=== PATIENT | male | born 1955 | race Caucasian/White ===

== ENCOUNTER 2021-08-08 13:56 | Inpatient (IN) | payer OTHER ==
[~2021-08-08] VITALS: Ht 175.3 cm; Wt 97.5 kg
--- NOTE | 2021-08-08 14:06 | NUR ---
[id number] FROM [facility] C/O CHEST PAIN PRESSURE LIKE 1HR RADIO TELEVISION TECHNICAL DIRECTOR P/S 7/10, GIVEN 4SPRAYS OF NITRO AND 324 ASPIRIN, CHEST PAIN 0/10 UPON ARRIVAL. PT ATTACHED TO MONITOR, NO RESP DISTRESS NOTED. PT DENIES CHEST PAIN UPON ARRIVAL AFTER BEING GIVEN NITRO AND ASPIRIN. WARM BLANKET PROVIDED FOR COMFORT. AWAITING MD SANDERS.
[2021-08-08 14:42] LABS: BASOPHILS % (AUTO) 0.2 % (0.0-2.0); EOSINOPHILS % (AUTO) 4.2 % (0.0-6.0); HEMATOCRIT 31 % (39-51); HEMOGLOBIN 10.4 g/dL (13.5-17.5); LYMPHOCYTES # (AUTO) 0.8 K/uL (0.8-4.8); LYMPHOCYTES % (AUTO) 9.8 % (20.0-44.0); MEAN CORPUSCULAR HGB CONC 33 g/dl (31.0-36.0); MEAN CORPUSCULAR VOLUME 89 fL (80-96); MONOCYTES # (AUTO) 0.9 K/uL (0.1-1.30); NEUTROPHILS # (AUTO) 6.2 K/uL (1.8-8.9); NEUTROPHILS % (AUTO) 74.8 % (43.0-81.0); PLATELET COUNT (AUTO) 235 K/uL (150-450); WHITE BLOOD COUNT (AUTO) 8.3 K/uL (4.3-11.0)
[2021-08-08] MEDS ORDERED: AMIN887L PO (14:42)
[2021-08-08] MEDS ORDERED: OLAN20TA3 PO (14:42)
[2021-08-08] MEDS ORDERED: DIVA-78 PO (14:42)
[2021-08-08] MEDS ORDERED: APIX5TAB PO (14:42)
[2021-08-08] MEDS ORDERED: DOCU-141 PO (14:42)
[2021-08-08] MEDS ORDERED: DILT-32 PO (14:42)
[2021-08-08] MEDS ORDERED: TAMS-12 PO (14:42)
[2021-08-08] MEDS ORDERED: FURO-144 PO (14:42)
[2021-08-08] MEDS ORDERED: MULT-447 PO (14:42)
[2021-08-08] MEDS ORDERED: DIGO125T PO (14:42)
[2021-08-08] MEDS ORDERED: MAGN400T26 PO (14:42)
[2021-08-08] MEDS ORDERED: CLON0.5T4 PO (14:42)
[2021-08-08] MEDS ORDERED: ASCO500C17 PO (14:42)
[2021-08-08] MEDS ORDERED: INSU100V7 SQ (14:42)
[2021-08-08] MEDS ORDERED: SPIR25TA6 PO (14:42)
[2021-08-08] MEDS ORDERED: INSU100V42 (14:42)
[2021-08-08] MEDS ORDERED: METO25TA6 PO (14:42)
[2021-08-08] MEDS ORDERED: GABA-532 PO (14:42)
[2021-08-08] MEDS ORDERED: ATOR20TA PO (14:42)
[2021-08-08] MEDS ORDERED: METF-440 PO (14:42)
--- NOTE | 2021-08-08 14:44 | NUR ---
COVID ANTIGEN SWAB DONE AND SENT TO THE LAB
[2021-08-08 15:17] LABS: CALCIUM, SERUM 9.1 mg/dL (8.5-10.1); CARBON DIOXIDE 39 mmol/L (21-32); CHLORIDE 93 mmol/L (98-107); CREATININE 0.6 mg/dL (0.6-1.3); GLUCOSE 137 mg/dL (74-106); POTASSIUM 3.8 mmol/L (3.5-5.1); SODIUM SERUM 133 mmol/L (136-145); UREA NITROGEN, BLOOD 7 mg/dL (7-18)
[2021-08-08 15:30] LABS: ALANINE AMINOTRANSFERASE 13 U/L (12-78); ALBUMIN 2.9 g/dL (3.4-5.0); ALKALINE PHOSPHATASE 64 U/L (46-116); ASPARTATE AMINOTRANSFERASE 7 U/L (15-37); BILIRUBIN,DIRECT 0.1 mg/dL (0.0-0.2); BILIRUBIN,TOTAL 0.3 mg/dL (0.2-1.0); TOTAL PROTEIN, SERUM 6.9 g/dL (6.4-8.2)
[2021-08-08] MEDS ORDERED: ONDANSETRON HCL/PF 4 MG/2 ML VIAL IVP PRN (15:30)
[2021-08-08] MEDS ORDERED: HYDROCODONE/APAP 5/325MG TABLET PO PRN (15:30)
[2021-08-08] MEDS ORDERED: MORPHINE SULFATE INJ 2 MG/ML DISP.SYRIN IV PRN (15:30)
[2021-08-08] MEDS ORDERED: NITROGLYCERIN 0.4 MG/TAB BOTTLE SL PRN (15:30)
[2021-08-08] MEDS ORDERED: MAG HYDROX/AL HYDROX/SIMETH 30 ML UDC PO PRN (15:30)
[2021-08-08] MEDS ORDERED: METOPROLOL TARTRATE 25 MG TABLET PO SCH (17:00)
[2021-08-08] MEDS ORDERED: DEXTROSE 50%-WATER 50 ML DISP.SYRIN IV PRN (17:30)
[2021-08-08] MEDS ORDERED: APIXABAN 5 MG TABLET ONE (17:40)
[2021-08-08] MEDS ORDERED: METOPROLOL TARTRATE 25 MG TABLET ONE (17:40)
[2021-08-08] MEDS ORDERED: METFORMIN 500 MG TABLET ONE (17:40)
[2021-08-08] MEDS ORDERED: clonazePAM 0.5 MG TABLET ONE (17:40)
[2021-08-08] MEDS: clonazePAM 0.5 MG TABLET PO SCH (17:51)
[2021-08-08] MEDS: METFORMIN 500 MG TABLET PO SCH (17:51)
[2021-08-08] MEDS: APIXABAN 5 MG TABLET PO SCH (17:51)
[2021-08-08] MEDS: BLOOD SUGAR DIAGNOSTIC 1 EACH STRIP IN SCH ×2 (17:51→21:29)
--- NOTE | 2021-08-08 17:53 | NUR ---
PT PROVIDED WITH MEAL TRAY
[2021-08-08] MEDS ORDERED: ACETAMINOPHEN 325 MG TABLET PO PRN (18:00)
--- NOTE | 2021-08-08 19:43 | NUR ---
ROOM 325 TELE
[2021-08-08 20:00] VITALS: BP 122/64
--- NOTE | 2021-08-08 20:21 | NUR ---
REPORT GIVEN TO JONAH AMATO FOR ROBBIN
--- NOTE | 2021-08-08 20:50 | NUR ---
PROFESSOR OF LITERATURECLOTH LAMINATING SUPERVISOR NOTE PT TRANSPORTED VIA GURNEY TO UNIT AT THIS TIME. PT FROM [facility] ADMITTED TO TELE FROM ER UNDER DR SAMANIEGO FOR ADMITTING DX CHEST PAIN. A/O X4 AND ABLE TO MAKE NEEDS KNOWN. AMBULATORY WITH STEADY GAIT. PT ON 2 LPM VIA NC, SATURATING 100%. NO SOB OR S/S OF RESPIRATORY DISTRESS. BREATHING EVEN AND UNLABORED. ON EXTERNAL LINER ROLL CHANGER READING AFIB 86 BPM. NO COMPLAINTS OF S/S OF PAIN NOTED. PT HAS L HAND SKIN TEAR, BILATERAL CHEEK WOUNDS, L EAR WOUND, AND R HAND BRUISE. WOUND CONSULT ORDERED. BLE 1+ NONPITTING EDEMA NOTED. IV ACCESS L WRIST 18 GAUGE SL, INTACT AND PATENT. ORIENTED TO UNIT, STAFF, AND ROOM. PT BELONGINGS ACCOUNTED FOR AND BELONGINGS LIST SIGNED. SAFETY PRECAUTIONS IN PLACE. BED IN LOWEST LOCKED POSITION, HOB ELEVATED, SIDE RAILS UP X2, AND CALL LIGHT AND TABLE WITHIN REACH. ALL NEEDS MET AT THIS TIME.
[2021-08-08] MEDS: GABAPENTIN 100 MG CAPSULE PO SCH (21:13)
[2021-08-08] MEDS: OLANZAPINE 5 MG TABLET PO SCH (21:14)
[2021-08-08] MEDS: DOCUSATE SODIUM 100 MG CAPSULE PO SCH (21:14)
[2021-08-08] MEDS: TAMSULOSIN 0.4 MG CAP.SR.24H PO SCH (21:14)
[2021-08-08] MEDS: ATORVASTATIN 10 MG TABLET PO SCH (21:14)
[2021-08-08] MEDS: INSULIN GLARGINE, 100 UNIT/ML CARTRIDGE SQ SCH (21:30)
[2021-08-08] MEDS ORDERED: MAGNESIUM HYDROXIDE 30 ML UDC PO PRN (22:00)
[2021-08-08 23:01] VITALS: BP 122/64
[2021-08-09 04:00] VITALS: BP 127/59
[2021-08-09] MEDS: GABAPENTIN 100 MG CAPSULE PO SCH ×3 (04:50→21:04)
[2021-08-09] MEDS: BLOOD SUGAR DIAGNOSTIC 1 EACH STRIP IN SCH ×4 (06:44→21:26)
--- NOTE | 2021-08-09 06:57 | NUR ---
U.S. REPRESENTATIVE CLOSING NOTE PT AWAKE IN BED. A/O X4 AND ABLE TO MAKE NEEDS KNOWN. PT ON 2 LPM VIA NC, SATURATING 100%. NO SOB OR S/S OF RESPIRATORY DISTRESS. BREATHING EVEN AND UNLABORED. ON EXTERNAL PAINTER BARREL READING AFIB 99 BPM. NO COMPLAINTS OF S/S OF PAIN NOTED. IV ACCESS L WRIST 18 GAUGE SL, INTACT AND PATENT. ALL DUE MEDS GIVEN ORDERED. SAFETY PRECAUTIONS IN PLACE AT ALL TIMES. BED IN LOWEST LOCKED POSITION, HOB ELEVATED, SIDE RAILS UP X2, AND CALL LIGHT AND TABLE WITHIN REACH. ALL NEEDS MET AT THIS TIME AND WILL ENDORSE TO ONCOMING NURSE FOR ROBBIN.
[2021-08-09 07:15] LABS: BASOPHILS % (AUTO) 0.2 % (0.0-2.0); EOSINOPHILS % (AUTO) 7.1 % (0.0-6.0); HEMATOCRIT 33 % (39-51); HEMOGLOBIN 10.9 g/dL (13.5-17.5); LYMPHOCYTES % (AUTO) 16.4 % (20.0-44.0); MEAN CORPUSCULAR HGB CONC 33 g/dl (31.0-36.0); MEAN CORPUSCULAR VOLUME 90 fL (80-96); MONOCYTES # (AUTO) 0.8 K/uL (0.1-1.30); MONOCYTES % (AUTO) 13.8 % (2.0-12.0); NEUTROPHILS # (AUTO) 3.7 K/uL (1.8-8.9); NEUTROPHILS % (AUTO) 62.5 % (43.0-81.0); PLATELET COUNT (AUTO) 244 K/uL (150-450); RED BLOOD CELL COUNT(AUTO) 3.69 MIL/uL (4.5-6.0)
--- NOTE | 2021-08-09 07:30 | NUR ---
NUCLEAR STATION OPERATOR OPENING NOTES RECEIVED PATIENT LYING IN BED ASLEEP. HE IS EASILY TO AROUSE, A/O X4. NO S/S OF SOB, DISTRESS AND DISCOMFORT NOTED. NO C/O PAIN OR DISCOMFORT, AND NO S/S OF DISTRESS. ON TELE MONITOR READING CONTROLLED A-FIB. HAS LEFT HAND IV ACCESS #18G AND SALINE LOCKED. INTACT, PATENT AND FLUSHING. ALL NEEDS ATTENDED. SAFETY MEASURES IN PLACE: BED LOW AND LOCKED, SIDE RAILS UP X2, CALL LIGHT WITHIN REACH. WILL CONTINUE TO MONITOR FOR ROBBIN.
[2021-08-09] MEDS: PANTOPRAZOLE 40 MG TABLET.DR PO SCH (07:57)
[2021-08-09 08:00] VITALS: BP 108/62
[2021-08-09 08:19] LABS: CALCIUM, SERUM 9.1 mg/dL (8.5-10.1); CREATININE 0.6 mg/dL (0.6-1.3); MAGNESIUM 1.4 mg/dL (1.8-2.4); PHOSPHORUS 4.5 mg/dL (2.5-4.9); POTASSIUM 4.1 mmol/L (3.5-5.1)
[2021-08-09] MEDS: MAGNESIUM OXIDE 400 MG TABLET PO SCH (08:27)
[2021-08-09] MEDS: SPIRONOLACTONE 25 MG TABLET PO SCH (08:27)
[2021-08-09] MEDS: MULTIVIT W/MINERALS 1 TAB TABLET PO SCH (08:27)
[2021-08-09] MEDS: ASCORBIC ACID 500 MG TABLET PO SCH (08:27)
[2021-08-09] MEDS: DOCUSATE SODIUM 100 MG CAPSULE PO SCH ×2 (08:28→21:04)
[2021-08-09] MEDS: ASPIRIN EC 81 MG TABLET.DR PO SCH (08:28)
[2021-08-09] MEDS: METFORMIN 500 MG TABLET PO SCH ×2 (08:28→17:22)
[2021-08-09] MEDS: DIGOXIN 0.125 MG TABLET PO SCH (08:28)
[2021-08-09] MEDS: DIVALPROEX SODIUM 250 MG TABLET.DR PO SCH ×2 (08:29→17:22)
[2021-08-09] MEDS: METOPROLOL TARTRATE 25 MG TABLET PO SCH ×2 (08:29→17:22)
[2021-08-09] MEDS: clonazePAM 0.5 MG TABLET PO SCH ×2 (08:30→17:22)
[2021-08-09] MEDS: DILTIAZEM HCL CD 120 MG PO SCH (08:31)
[2021-08-09] MEDS: FUROSEMIDE 40 MG TABLET PO SCH (08:31)
[2021-08-09] MEDS: APIXABAN 5 MG TABLET PO SCH ×2 (08:39→17:23)
[2021-08-09] MEDS: INSULIN GLARGINE, 100 UNIT/ML CARTRIDGE SQ SCH ×2 (08:41→21:27)
[2021-08-09 08:52] LABS: IRON, SERUM 51 ug/dl (50-175); TOTAL IRON BINDING CAPACITY 254 ug/dl (250-450)
[2021-08-09 09:05] LABS: FERRITIN 121 ng/mL (8-388)
[2021-08-09] MEDS: Magnesium 1GM/D5W 100ML PREMIX 100 ML IV SCH ×4 (11:06→15:04)
[2021-08-09 12:00] VITALS: BP 130/59
[2021-08-09 14:24] LABS: CHOLESTEROL 90 mg/dL (<200); HDL CHOLESTEROL 38 mg/dL (40-60); LDL 39 mg/dL (0-99); TRIGLYCERIDES 73 mg/dL (30-150)
[2021-08-09 16:00] VITALS: BP 113/58
--- NOTE | 2021-08-09 18:32 | NUR ---
[employer] EMERGENCY SERVICES MANAGER CLOSING NOTES PATIENT LYING IN BED ASLEEP. HE IS EASILY TO AROUSE, A/O X4. NO S/S OF SOB, DISTRESS AND DISCOMFORT NOTED. NO C/O PAIN OR DISCOMFORT, AND NO S/S OF DISTRESS. ON TELE MONITOR READING CONTROLLED A-FIB. HAS LEFT HAND IV ACCESS #18G AND SALINE LOCKED. INTACT, PATENT AND FLUSHING. ALL NEEDS ATTENDED. SAFETY MEASURES IN PLACE: BED LOW AND LOCKED, SIDE RAILS UP X2, CALL LIGHT WITHIN REACH. WILL ENDORSE TO INCOMING SHIFT FOR ROBBIN.
--- NOTE | 2021-08-09 19:45 | NUR ---
[facility] CRAB OPENING NOTE RECEIVED PT AWAKE IN BED. A/O X4 AND ABLE TO MAKE NEEDS KNOWN. PT ON 2 LPM VIA NC, SATURATING 100%. NO SOB OR S/S OF RESPIRATORY DISTRESS. BREATHING EVEN AND UNLABORED. ON EXTERNAL REVENUE FIELD AGENT READING AFIB 94 BPM. NO COMPLAINTS OF S/S OF PAIN NOTED. IV ACCESS L WRIST 18 GAUGE SL, INTACT AND PATENT. SAFETY PRECAUTIONS IN PLACE. BED IN LOWEST LOCKED POSITION, HOB ELEVATED, SIDE RAILS UP X2, AND CALL LIGHT AND TABLE WITHIN REACH. ALL NEEDS MET AT THIS TIME.
[2021-08-09 20:00] VITALS: BP 102/60
[2021-08-09] MEDS: TAMSULOSIN 0.4 MG CAP.SR.24H PO SCH (21:04)
[2021-08-09] MEDS: ATORVASTATIN 10 MG TABLET PO SCH (21:04)
[2021-08-09] MEDS: OLANZAPINE 5 MG TABLET PO SCH (21:05)
[2021-08-09] MEDS: INSULIN REGULAR, HUMAN 100 UNIT/ML 3 ML VIAL SQ PRN (21:28)
[2021-08-10] VITALS: BP 137/56
[2021-08-10 04:00] VITALS: BP 108/65
[2021-08-10] MEDS: GABAPENTIN 100 MG CAPSULE PO SCH ×2 (05:09→13:05)
[2021-08-10] MEDS: BLOOD SUGAR DIAGNOSTIC 1 EACH STRIP IN SCH ×2 (06:31→11:20)
--- NOTE | 2021-08-10 06:57 | NUR ---
RISK ASSESSOR CLOSING NOTE PT AWAKE IN BED. A/O X4 AND ABLE TO MAKE NEEDS KNOWN. PT ON 2 LPM VIA NC, SATURATING 100%. NO SOB OR S/S OF RESPIRATORY DISTRESS. BREATHING EVEN AND UNLABORED. ON EXTERNAL WOOD SCALER READING AFIB 95 BPM. NO COMPLAINTS OF S/S OF PAIN NOTED. IV ACCESS L WRIST 18 GAUGE SL, INTACT AND PATENT. ALL DUE MEDS GIVEN ORDERED. SAFETY PRECAUTIONS IN PLACE AT ALL TIMES. BED IN LOWEST LOCKED POSITION, HOB ELEVATED, SIDE RAILS UP X2, AND CALL LIGHT AND TABLE WITHIN REACH. ALL NEEDS MET AT THIS TIME AND WILL ENDORSE TO ONCOMING NURSE FOR ROBBIN.
--- NOTE | 2021-08-10 07:20 | NUR ---
RN OPENING NOTES RECEIVED PATIENT IN BED AWAKE, VERBALLY RESPONSIVE, NO SIGNS OF ACUTE DISTRESS NOTED. ON O2 @ 2LPM VIA N/C, BREATHING EVEN AND UNLABORED, NO SOB NOTED. DENIES ANY PAIN AT THIS TIME. ON CARDOIAC MONITOR, NOT IN ANY ACUTE CARDIAC DISTRESS. NOTED WITH PERIPHERAL ACCESS ON LEFT WRIST#18G, INTACT AND PATENT, SALINE LOCKED. SAFETY MEASURE IN PLACE. BED IN LOWEST AND LOCKED POSITION, SIDE RAILS UP X2, CALL LIGHT PLACED WITHIN EASY REACH. WILL CONTINUE TO MONITOR PATIENT.
[2021-08-10 08:00] VITALS: BP 134/58
[2021-08-10] MEDS: PANTOPRAZOLE 40 MG TABLET.DR PO SCH (08:17)
[2021-08-10] MEDS: APIXABAN 5 MG TABLET PO SCH (08:21)
[2021-08-10] MEDS: DOCUSATE SODIUM 100 MG CAPSULE PO SCH (08:28)
[2021-08-10] MEDS: DIVALPROEX SODIUM 250 MG TABLET.DR PO SCH (08:28)
[2021-08-10] MEDS: clonazePAM 0.5 MG TABLET PO SCH (08:28)
[2021-08-10] MEDS: ASPIRIN EC 81 MG TABLET.DR PO SCH (08:28)
[2021-08-10] MEDS: MULTIVIT W/MINERALS 1 TAB TABLET PO SCH (08:28)
[2021-08-10] MEDS: SPIRONOLACTONE 25 MG TABLET PO SCH (08:28)
[2021-08-10] MEDS: DILTIAZEM HCL CD 120 MG PO SCH (08:29)
[2021-08-10] MEDS: ASCORBIC ACID 500 MG TABLET PO SCH (08:29)
[2021-08-10] MEDS: DIGOXIN 0.125 MG TABLET PO SCH (08:29)
[2021-08-10] MEDS: METFORMIN 500 MG TABLET PO SCH (08:29)
[2021-08-10] MEDS: MAGNESIUM OXIDE 400 MG TABLET PO SCH (08:29)
[2021-08-10] MEDS: FUROSEMIDE 40 MG TABLET PO SCH (08:29)
[2021-08-10] MEDS: METOPROLOL TARTRATE 25 MG TABLET PO SCH (08:30)
[2021-08-10] MEDS: INSULIN GLARGINE, 100 UNIT/ML CARTRIDGE SQ SCH (08:36)
[2021-08-10] MEDS: Magnesium 1GM/D5W 100ML PREMIX 100 ML IV SCH ×2 (08:53→10:13)
[2021-08-10] MEDS: INSULIN REGULAR, HUMAN 100 UNIT/ML 3 ML VIAL SQ PRN (11:23)
[2021-08-10 12:00] VITALS: BP 122/71
--- NOTE | 2021-08-10 15:18 | NUR ---
RN DISCHARGED NOTES PATIENT DISCHARGED TO [facility] IN STABLE CONDITION. PATIENT REMAINS AWAKE, ALERT AND ORIENTED X4, VERBALLY RESPONSIVE, NO SIGNS OF ACUTE DISTRESS NOTED. VITAL SIGNS TAKEN, STABLE. ALL BELONGINGS ACCOUNTED FOR, FORM SIGNED BY PATIENT. PHOTOS OF SKIN ISSUES TAKEN, PLACED IN PATIENTS CHART. IV ACCESS ON LEFT WRIST REMOVED, NO BLEEDING NOTED, PRESSURE DRESSING APPLIED. ARM NAME BAND REMOVED. REPORT GIVEN TO JESSICA IBARRA FROM [facility] ([place], [place]), PATIENT WILL BE GOING TO ROOM 38B. EXITCARE FOLDER GIVEN TO [facility]UL[facility] STAFF. [facility] AWARE OF DIS[facility].
== END 2021-08-10 15:30 | DRG 303 ==
LOC: ER 14:00 → TRANSITION 17:08 → TELE 19:58
DX: I25.10 Atherosclerotic heart disease of native coronary artery without angina pectoris (principal); I50.32 Chronic diastolic (congestive) heart failure; I48.91 Unspecified atrial fibrillation; Z79.01 Long term (current) use of anticoagulants; Z20.822 Contact with and (suspected) exposure to COVID-19; I11.0 Hypertensive heart disease with heart failure; E11.9 Type 2 diabetes mellitus without complications; Z87.891 Personal history of nicotine dependence; Z88.8 Allergy status to other drugs, medicaments and biological substances; Z79.84 Long term (current) use of oral hypoglycemic drugs; Z79.899 Other long term (current) drug therapy; Z79.4 Long term (current) use of insulin; J44.9 Chronic obstructive pulmonary disease, unspecified; D64.9 Anemia, unspecified; E66.9 Obesity, unspecified; G47.33 Obstructive sleep apnea (adult) (pediatric); Z68.31 Body mass index [BMI] 31.0-31.9, adult; E78.5 Hyperlipidemia, unspecified
CPT/HCPCS: 36415; 71045-TC; 80048-TC; 80061-TC; 80076-TC; 80162-TC; 82728-TC; 82962-TC; 83540-TC; 83735-TC; 83880; 84100-TC; 84443-TC; 84484-TC; 85025-TC; 87081-TC; 93307-TC; 94799-TC; 97116-TC; 97530-TC; C9803; G0378; J1815; J3475; J7040